=== PATIENT | female | born 1965 | race Caucasian/White ===

== ENCOUNTER → 2017-07-30 | Outpatient (CLI) | payer OTHER | LOC: FIMAGING 11:28 | PROVIDERS: ATTEND Obstetrics & Gynecology Gynecology | DX: Z12.31 Encounter for screening mammogram for malignant neoplasm of breast (principal); Z80.3 Family history of malignant neoplasm of breast ==

== ENCOUNTER → 2017-11-19 | Outpatient (CLI) | payer OTHER | LOC: BRMIMAGING 09:28 | PROVIDERS: ATTEND Physician Assistant Medical | DX: N60.01 Solitary cyst of right breast (principal) | CPT/HCPCS: 76641-PO ==